=== PATIENT | male | born 1980 | race African-American/Black ===

== ENCOUNTER 2017-10-28 09:21 | Emergency (ER) | payer BC ==
[~2017-10-28] VITALS: Ht 177.8 cm; Wt 98.0 kg
[2017-10-28 09:23] VITALS: BP 120/82
== END 2017-10-28 10:25 | disposition home or self-care (01) ==
LOC: ED 10:20
DX: J20.8 Acute bronchitis due to other specified organisms (principal); B96.89 Other specified bacterial agents as the cause of diseases classified elsewhere; F17.210 Nicotine dependence, cigarettes, uncomplicated
CPT/HCPCS: 71046; 99284